=== PATIENT | female | born 1975 | race Caucasian/White ===

== ENCOUNTER → 2023-04-03 06:19 | Day surgery (SDC) | payer BC, SELFPAY ==
[2023-04-03 07:55] LABS: Glucose - Point of Care 175 mg/dl (70-99)
== END ==
LOC: GI 06:19
PROVIDERS: ATTENDING PHYSICIAN Specialist
DX: Z12.11 Encounter for screening for malignant neoplasm of colon (principal); D50.9 Iron deficiency anemia, unspecified; Q43.8 Other specified congenital malformations of intestine; K29.70 Gastritis, unspecified, without bleeding; K22.89 Other specified disease of esophagus; K31.89 Other diseases of stomach and duodenum; K31.7 Polyp of stomach and duodenum; R11.0 Nausea; Z86.010 Personal history of colon polyps
CPT/HCPCS: 43239; G0105; 88305; 82962; 88342

== ENCOUNTER 2024-10-15 12:18 | Emergency (ER) | payer BC, SELFPAY ==
[2024-10-15 12:23] VITALS: BP 120/85
[2024-10-15 12:48] LABS: Hematocrit 36.8 % (37.0-47.0); Hemoglobin 12.1 g/dL (12.0-16.0); Mean Corp Hgb Conc. 32.9 g/dL (33.0-37.0); Mean Corpuscular Volume 88.0 fL (81.0-99.0); Nucleated Red Blood Cells % 0 %; Platelet Count 279 10^3/uL (130-400); Red Cell Dist. Width 13.3 % (11.5-14.5)
[2024-10-15 13:12] LABS: HCG, Serum Qualitative Screen Negative
[2024-10-15 13:16] LABS: ALT (SGPT) 12 U/L (0-35); AST (SGOT) 18 U/L (14-36); Albumin 4.0 g/dl (3.5-5.0); Alkaline Phosphatase 70 U/L (38-126); Blood Urea Nitrogen 13 mg/dl (7-17); Calcium 9.8 mg/dl (8.4-10.2); Carbon Dioxide 28 mmol/L (22-30); Chloride 104 mmol/L (98-107); Glucose 93 mg/dl (70-99); Lipase 39 U/L (23-300); Potassium 4.6 mmol/L (3.5-5.1); Sodium 136 mmol/L (135-145); Total Protein 6.4 g/dl (6.3-8.2); eGFR > 60.00
[2024-10-15] MEDS: NSS 1000 IV (16:19)
[2024-10-15 16:31] VITALS: BMI 19.3
[2024-10-15] MEDS: TYLENOL 650 MG PO (16:43)
--- NOTE | 2024-10-15 16:46 | ED.GENMED ---
History of Present Illness
General
Chief Complaint: Flank Pain
Source: patient
Exam Limitations: none
Time Seen by Provider: 10/15/24 16:01
Nursing documentation reviewed up to this point in time: agreed with
History of Present Illness
History of Present Illness:
Patient is a 49-year-old female with history hypertension, hyperlipidemia who presents to the emergency department with left lower abdominal pain. Patient reports progressively worsening pain in her left lower abdomen over the past 3 days. She
describes it as a constant, sharp pain without radiation into her back. No exacerbating or alleviating factors. She denies any changes in her bowel habits or any urinary symptoms including dysuria or hematuria. No associated fever, chills,
vomiting.
Patient does have history of kidney stones however states typically has radiation of pain to her back which she has not experienced.
Past History
Past History
ED Past Medical History: None
ED Past Surgical History: Cholecystectomy
Social History
Tobacco: Non-smoker
Alcohol: None
Drug: None
Living: with family
Phy Exam
Physical Exam
Physical Exam:
Vitals: Mildly tachycardic, otherwise vital signs stable. Afebrile
General: Patient is well appearing, no acute distress
Skin: Warm and dry, no rashes or lesions
Head: Normocephalic, atraumatic
Eyes: Sclera nonicteric.
Throat: Protecting airway
Neck: Normal ROM, no cervical spine tenderness, no meningismus
Cardiac: Regular rate and rhythm, no murmurs.
Pulm: Normal respiratory effort, no wheezes, rales, rhonchi heard on exam
Abdomen: Abdomen soft. Moderate tenderness in left lower quadrant with voluntary guarding. No rebound tenderness. No CVA tenderness.
Extremities: No evidence of cyanosis or edema
Neuro: AAOx3. Grossly intact.
Psychiatric: Normal affect.
Course
Orders/Labs/Results
Orders:
Orders
10/15/24 12:27
Test Result ONCE
10/15/24 12:37
Complete Blood Count/With Diff Urgent
Comprehensive Metabolic Panel Urgent
HCG, Serum Qualitative Screen Urgent
Comment: Notify provider if positive test present
Lipase Urgent
10/15/24 16:11
CT Abd/pelvis W Iv Cont Urgent
Comment:
Reason For Exam: LLQ pain
0.9% Sodium Chloride 1000 ml [Nss] 1,000 ml IV BOLUS
10/15/24 16:42
Acetaminophen [Tylenol] 325 mg .ROUTE .STK-MED ONE
10/15/24 16:43
Acetaminophen [Tylenol] 650 mg PO NOW STA
10/15/24 16:48
Urinalysis Reflex To Culture Urgent
Date Specimen was Collected: 10/15/24
Time Specimen was Collected: 16:47
Urine Microscopic Reflex Cult Urgent
Urine Culture Urgent
NNEKA Source: U
Specimen Description:
Date Specimen was Collected: 10/15/24
Time Specimen was Collected: 16:47
10/15/24 18:27
Add On - Microbiology Urgent
Tests Added?: urine culture
10/15/24 18:40
LevoFLOXacin [Levaquin] 750 mg PO NOW STA
MetroNIDAZOLE [Flagyl] 500 mg PO NOW STA
Oxycodone [Roxicodone] 5 mg PO NOW STA
Abnormal Lab Results
10/15/24 10/15/24
12:37 16:48
WBC 13.5 H 10^3/uL
(4.8-10.8)
RBC 4.18 L 10^6/uL
(4.20-5.40)
Hct 36.8 L %
(37.0-47.0)
MCHC 32.9 L g/dL
(33.0-37.0)
Absolute Neuts (auto) 10.1 H 10^3/uL
(1.4-6.5)
Absolute Monos (auto) 1.3 H 10^3/uL
(0.1-0.6)
Lymphocytes % 13.5 L %
(20.5-51.1)
Monocytes % 9.7 H %
(1.7-9.3)
Leukocyte Esterase Rfl 2+ A
(Negative)
Urine Bacteria (Reflex) Moderate A
(Negative)
Urine Albumin (Reflex) 2+ A
(Neg - Trace)
10/15/24 12:37
10/15/24 12:37
Vital Signs
Initial and Last Documented VS:
Initial Vital Signs
Temp Pulse Resp BP Pulse Ox
98.2 F 108 18 120/85 99
10/15/24 12:23 10/15/24 12:23 10/15/24 12:23 10/15/24 12:23 10/15/24 12:23
Last Documented Vital Signs
Temp Pulse Resp BP Pulse Ox
98.2 F 96 18 105/66 100
10/15/24 12:23 10/15/24 17:56 10/15/24 12:23 10/15/24 17:56 10/15/24 17:56
MDM/Problems Addressed
Differential Diagnosis Includes:
Not limited to: Diverticulitis, pyelonephritis, renal colic, cystitis, UTI, ovarian cyst, etc.
MDM/Problems Addressed:
39-year-old female presenting with 3 days of lower abdominal pain. No associated fever, vomiting, urinary symptoms or changes in bowel habits. History of kidney stones although these symptoms seem somewhat different. Vital signs and physical exam
as above. Differential as above.
Basic labs were sent prior to my evaluation significant for leukocytosis of 13.5. Chemistry unremarkable. Urine somewhat equivocal for infection with moderate bacteria and 2+ leukocyte esterase although also appears contaminated with many squamous
cells. Will obtain CT scan with IV contrast of abdomen/pelvis for further evaluation. Will give IV fluids. Patient declines any analgesia at this time.
Update 6:40 PM: CT report shows colitis of descending/sigmoid colon. This would correlate with area of patient's symptoms. Discussed with patient at length including incidental findings noted and patient given copy of CT report. Offered admission
for pain control however patient would prefer discharge home. Patient is afebrile and otherwise nontoxic and very well-appearing�feel appropriate for discharge. Given tenderness and leukocytosis�will start patient on course of oral antibiotics.
Patient has intolerance to Augmentin, will send Levaquin/Flagyl. Discussed supportive care at home, pain management. Lengthy discussion regarding strict return precautions and advised PCP follow-up next week to ensure symptoms improving. Patient
comfortable with plan.
Chronic conditions affecting care:
N/A
Acute Exacerbation and/or Progression of Chronic Illness:
N/A
*Radiology
Radiology exam reviewed: radiology read reviewed
*Pulse Oximetry
SaO2: 99
Oxygen Mode of Delivery: Room air
Patient hypoxic: no
*EKG
Interpreted by ED Provider?: NA
*Instructor Warper Interpretation
Rate: Instructor Warper- N/A
*Critical Care Note
Total Time (30-74mins, 75-104mins- exclusive of procedures): Not Applicable
ED Attending Note
-
Portions of this chart may have been created with voice recognition software.� Occasional wrong word or��sound alike� substitutions may have occurred due to the inherent limitations of voice recognition software.
Discharge Plan
Departure
Patient Disposition: Home (Routine Discharge)
Date of Disposition: 10/15/24
Time of Disposition: 18:41
Patient with high blood pressure during this ER visit?: No
Discharge Problem:
Colitis, Abdominal pain
Instructions: Colitis (DC), Abdominal pain in adults - ED (DC)
Prescriptions:
New
metronidazole 500 mg tablet
500 mg PO TID Qty: 21 0RF
levofloxacin 750 mg tablet
750 mg PO DAILY 7 Days Qty: 7 0RF
oxycodone-acetaminophen [Percocet] 5-325 mg tablet
1 tab PO Q8H PRN (Reason: Pain) Qty: 7 0RF
No Action
bqcfxqoupq-kwpdgmxynpufg-fvgy 1 TAB tablet
1 tab PO Q4HPRN PRN (Reason: migraine)
calcium carbonate [Antacid (calcium carbonate)] 1 TABLET tablet,chewable
1 tab PO PRN PRN (Reason: heart burn)
zolpidem 10 MG tablet
10 mg PO HSPRN PRN (Reason: sleep)
losartan 100 MG tablet
100 mg PO DAILY
pantoprazole 40 MG tablet,delayed release (DR/EC)
40 mg PO DAILY Qty: 30 1RF
ondansetron 4 MG tablet,disintegrating
4 mg PO Q8H PRN (Reason: nausea) Qty: 30 0RF
metformin 500 MG tablet
500 mg PO BID Qty: 60 1RF
Referrals:
NONE,* [Active, Internal Medicine]
Activity Restrictions/Additional Instructions:
RETURN TO THE EMERGENCY DEPARTMENT WITH ANY FEVERS, NAUSEA/VOMITING, PERSISTENT/WORSENING ABDOMINAL PAIN, SIGNS OF SEVERE DEHYDRATION, WORSENING IN CURRENT SYMPTOMS, OR ANY CONCERNS
- As discussed�your white blood cell count was mildly elevated in the emergency department. Your CT scan showed findings of colitis.
- A prescription for 2 antibiotics has been at your pharmacy. Please take as directed. Is important stay well-hydrated. I would recommend a clear liquid/low fiber diet over the next few days and slowly advance as tolerated.
- You can take Tylenol as needed for pain. For severe pain�you can take Percocet which has been sent to your pharmacy. This may cause drowsiness and you should not take prior to driving.
- Follow-up with your primary care provider next week for further evaluation/management and to ensure that your symptoms are improving
Monitor your symptoms closely and return to the emergency department with any acute worsening/new symptoms or any signs of worsening infection
Interventions
Interventions:
*Risk Screen - Suicide Last Done: 10/15/24 12:23
*General Assessment Last Done: 10/15/24 16:28
*Neglect/Abuse Screening Last Done: 10/15/24 16:28
*ED- Fall Risk Assessment Last Done: 10/15/24 16:28
*ED COVID-19 Vaccine History Last Done: 10/15/24 16:28
CZ-Ewqixr-Kibxgvnisq Assessment Last Done: 10/15/24 16:28
ED-Female Genitourinary Assessment Last Done: 10/15/24 16:28
Discharge Date and Time
Print Language: SLOVENIAN
[2024-10-15 16:58] LABS: Urine Character Clear (Clear)
[2024-10-15 17:08] LABS: Urine Squamous Cell 26-30 /LPF (Few)
[2024-10-15 17:09] LABS: Urine Red Blood Cell 0-2 /HPF (0-2)
[2024-10-15 17:56] VITALS: BP 105/66
[2024-10-15] MEDS: ROXICODONE 5 MG PO (19:01)
[2024-10-15] MEDS: LEVAQUIN 750 MG PO (19:01)
[2024-10-15] MEDS: FLAGYL 500 MG PO (19:01)
== END 2024-10-15 19:14 | disposition home or self-care (01) ==
LOC: EMR 12:18
PROVIDERS: Emergency Medicine; Physician Assistant; EMERGENCY PHYSICIAN Emergency Medicine; FAMILY PHYSICIAN Hospitalist
DX: K52.9 Noninfective gastroenteritis and colitis, unspecified (principal); I10 Essential (primary) hypertension; E78.5 Hyperlipidemia, unspecified; Z90.49 Acquired absence of other specified parts of digestive tract; Z87.442 Personal history of urinary calculi; Z92.3 Personal history of irradiation
CPT/HCPCS: 96360; 96361; 99284; 74177; 80053; 81003; 81015; 83690; 84703; 85025; 87086; Q9967